=== PATIENT | female | born 2005 | race Caucasian/White ===

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

== ENCOUNTER 2025-02-10 12:23 | Emergency (ER) | payer BC ==
--- NOTE | 2025-02-10 12:40 | ER ---
Nurse's Notes [facility] Name: Jamilah Lai Age: 19 yrs Sex: Female : 2005 Arrival Date: 02/10/2025 Time: 12:23 Bed Waiting Private MD: Diagnosis: Presentation: 02/10 12:37 Chief complaint: patient left and said they didn't want to be seen. me1 ED Course: 12:26 Patient arrived in ED. mr 12:29 Catarino Diaz MD is Attending Physician. mauricio Administered Medications: No medications were administered Outcome: 12:41 Patient left the ED. me1 Signatures: Catarino Diaz MD MD cha Rivera, Mary, Reg Reg Rachel Carter, RN RN me1
== END 2025-02-10 12:41 | disposition left against medical advice (07) ==
LOC: ER 12:23
DX: Z53.21 Procedure and treatment not carried out due to patient leaving prior to being seen by health care provider (principal)
CPT/HCPCS: 99281